=== PATIENT | female | born 1940 | race Caucasian/White ===

== ENCOUNTER 2018-02-18 13:25 | Emergency (ER) | payer OTHER ==
[~2018-02-18] VITALS: Ht 165.1 cm; Wt 65.8 kg
[2018-02-18 13:30] VITALS: BP_SYST 136
--- NOTE | 2018-02-18 13:54 | NUR ---
Pt placed in bed 7
--- NOTE | 2018-02-18 14:04 | NUR ---
Pt brought by self,A&Ox4, pt states she is seen flushing lights through both eyes, mild headache, skin pink and warm , cap refill <3, Hx of weakness on L eye and L side of face, speech is normal, steady gait.
--- NOTE | 2018-02-18 14:05 | NUR ---
Dr Alaniz at bedside examining patient
--- NOTE | 2018-02-18 14:25 | NUR ---
Pt on stable condition , VS WNL, steady gait.
--- NOTE | 2018-02-18 14:42 | NUR ---
Patient given written and verbal discharge instructions and verbalizes understanding. ER MD discussed with patient the results and treatment provided. Patient in stable condition. ID arm band removed. Rx of Motrin given. Patient educated on pain management and to follow up with PMD. Pain Scale 0/10. Opportunity for questions provided and answered. Medication side effect fact sheet provided.
[2018-02-18 14:43] VITALS: BP_SYST 110
== END 2018-02-18 14:43 | disposition home or self-care (01) ==
LOC: SED 13:25
DX: H43.393 Other vitreous opacities, bilateral (principal); R51 Headache; I10 Essential (primary) hypertension; Z90.89 Acquired absence of other organs; Z90.710 Acquired absence of both cervix and uterus
CPT/HCPCS: 99282